=== PATIENT | female | born 1975 | race Caucasian/White ===

== ENCOUNTER 2022-01-10 13:01 | Emergency (ER) | payer BC, SELFPAY ==
--- NOTE | ~2022-01-10 | XR_ITS ---
XR hand RT min 3V 01/10/2022 13:19 INDICATION: Right hand pain. PROCEDURE: 3 views right hand COMPARISON: No prior studies for comparison. FINDINGS: Fracture, dislocation or subluxation is not identified. The soft tissues appear within norm al limits. No foreign bodies are identified. IMPRESSION: 1: NO ACUTE BONE OR JOINT ABNORMALITY IDENTIFIED. Reviewed, dictated and finalized at location A.
--- NOTE | 2022-01-10 13:06 | ED.UPPEXIN ---
HPI - Extremity Injury (Upper) General Chief Complaint: Extremity Injury, Upper Stated Complaint: R HAND PAIN Time Seen by Provider: 01/10/22 13:28 Source: patient and RN notes reviewed Mode of arrival: ambulatory Limitations: no limitations History of Present Illness HPI narrative: 46-year-old female presents concern for right hand pain. She reports pain beneath the fifth digit. She reports swelling. She reports pain started on Thursday, she denies any known injury or trauma. 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 She reports she recently was in physical therapy for pain to digits 1 and 2 of that hand. Reports her physical therapist told her she should get an x-ray. She reports she took ibuprofen this morning. She denies redness, warmth, open skin, rash. MD complaint: injury to: right and hand Related Data Home Medications Medication Instructions Recorded Confirmed No Home Medications 01/10/22 01/10/22 Allergies Allergy/AdvReac Type Severity Reaction Status Date / Time No Known Allergies Allergy Mild Unverified 01/10/22 13:20 Review of Systems Review of Systems: CONSTITUTIONAL: Denies malaise, chills, sweats, or fever. SKIN: Denies rash or itching, open skin, laceration, abrasion, redness, warmth MUSCULOSKELETAL: Reports right hand pain and swelling NEUROLOGIC: Denies numbness, weakness All systems reviewed & are unremarkable except as noted in HPI and below PMFSH Family History Family History (Updated 12/15/13 @ 07:13 by DOCTOR UNKNOWN) Father Hypertension Family history of alcoholism Family history of coronary artery disease Mother Hypertension Social History Social History Smoking status: Never smoker Alcohol intake: current Comments At time of signature, agree with nursing past medical, surgical, social and family history. There is no relevant family history pertinent to the presenting complaint Exam Narrative: GENERAL: Well-appearing, well-nourished, and in no acute distress. HEAD: Normocephalic EYES: PERRLA, conjunctivae clear NECK: Supple. CHEST: Speaks in full sentences. No respiratory distress. HEART: Regular rate and rhythm. Normal and equal peripheral pulses. EXTREMITIES: Right hand and digits of hand have grossly normal strength and sensation. Range of motion grossly normal. No clubbing, cyanosis,. Mild edema and tenderness noted to the lateral hand today digit 5. Skin intact. Normal digital cascade with flexion of fingers, median, ulnar and radial nerve intact. Normal sensation of each side of finger. No scissoring. Normal thumb opposition. Good capillary refill and radial pulse. Distal capillary refill less than 3 seconds. Patient is right/left hand dominant SKIN: Warn, dry, intact, pink. No rash NEURO: Alert and oriented x3. PSYCH: Normal mood and affect Course Course Emergency Course: Patient is aware of diagnosis, understands and agrees to treatment plan. Anticipatory guidance given. Patient agrees to follow-up as directed and is aware of reasons to seek care at the emergency department. Portions of this record may have been created with voice recognition software Level of Care: Express Care Visit Vital Signs Vital signs: Reviewed. MDM - Extremity Injury (Upper) MDM Narrative Medical decision making narrative: Patients pain is consistent with musculoskeletal etiology. No signs of neurological or vascular compromise on exam. Compartments and tissues are soft without signs of compartment syndrome. Pain is felt appropriate for further evaluation on an outpatient basis. Imaging Data My impression: Images reviewed, interpreted by radiologist, agree, see report. Radiologist's impression: XR hand RT min 3V 01/10/2022 13:19 INDICATION: Right hand pain. PROCEDURE: 3 views right hand COMPARISON: No prior studies for comparison. FINDINGS: Fracture, dislocation or subluxation is not identified. The soft tissues appear withi
[2022-01-10 13:07] VITALS: BP 123/66; PULSE 63; RESP 16; TEMP 36.7; O2SAT 100
== END 2022-01-10 13:45 | disposition home or self-care (01) ==
PROVIDERS: Emergency Provider Nurse Practitioner
DX: M79.641 Pain in right hand (principal)
CPT/HCPCS: 73130; 99213; G0463

== ENCOUNTER 2024-12-16 14:30 | Outpatient (RCR) | payer OTHER, SELFPAY ==
--- NOTE | 2024-10-14 11:17 | OTOPEVAL1 ---
Assessment and note entered by Madhu Chin, OTR/Starr, CHT OT Evaluation Information 10/14/24 Diagnosis (R) forearm pain, (R) hand pain ICD-10 Condition Codes (OT) Pain in right hand M79.641,Generalized muscle weakness M62.81 Subjective Information Patient is a dentist, has been practicing for 24 years. She is right handed. Reports experiencing hand fatigue symptoms for 7-8 years. She reports her symptoms have not been constant and she has tried PT over the years. Today she points to the thumb and index finger as well as the 1st web space as the source of her complaints. She holds a pen and demonstrates the type of repetitive movements she does with her dental tools. She reports not necessarily feeling pain, more hand fatigue and weakness. Assessment OT Clinical Summary Patient referred to OT with dx of (R) forearm and (R) hand pain. She has been a practicing dentist for 24 years and demonstrates signs and symptoms of repetitive strain of her right hand intrinsics, lumbricals, and thenar muscles. She demonstrates intact and functional ROM, however she has decreased functional strength and fatigue with strengthening. Educated on use of IASTM tools, self soft tissue mobilization, 1st web space release, and strengthening exercises. At this time the patient is independent with all materials. She is traveling the month of October and we are going to have a follow up in 1 month to reassess and progress her HEP. Interventions Therapeutic Exercise,Manual Therapy,Neuro Re- education,Therapeutic Activities,Hot Pack/Cold Pack,Paraffin OT Services Indicated Yes Treatment Frequency and At this time the patient is independent with all Duration materials. She is traveling the month of October and we are going to have a follow up in 1 month to reassess and progress her HEP. These treatments will address the objective and functional deficits as defined above. The patient will be advanced safely and appropriately in order for the patient to progress towards his/her prior level of function. Additional exercises will be introduced and as well as a comprehensive home exercise program upon discharge, if needed, ?to ensure carryover of functional gains achieved in the clinic. This treatment plan has been reviewed and agreement upon by the patient.
--- NOTE | 2024-10-14 11:17 | OPREHPOC ---
Outpatient Therapy Plan of Care This is a Multidisciplinary Plan of Care that may contain components documented by all disciplines (PT, OT, and ST.) OT Problem 1 OT Problem #1 Knowledge Deficit OT Goal 1 Goal / Goal Update 1. Patient to be independent with instructed materials. Target Visit 2 OT Problem 2 OT Problem #2 Impaired Strength OT Goal 1 Goal / Goal Update 1. Increase (R) head trimmer strength by 5 lbs. 2. Increase (R) lateral pinch strength by 2 lbs. 3. Increase (R) palmar pinch strength by 2 lbs. 4. Increase (R) tip pinch strength by 2 lbs. Target Visit 2 OT Problem 3 OT Problem #3 Impaired Functional ADLs OT Goal 1 Goal / Goal Update 1. Patient to report improved functional hand use and reduced hand fatigue during work tasks. Target Visit 2
--- NOTE | 2024-11-18 09:37 | OTOPPROG ---
Assessment and note entered by Madhu Chin, LYNN/Starr, CHT OT Progress Update 11/18/24 Assessment Status Progress Diagnosis (R) forearm pain, (R) hand pain ICD-10 Condition Codes (OT) Pain in right hand M79.641,Generalized muscle weakness M62.81 Subjective Information Patient reports some progress in her UE symptoms. She reports she has been inconsistent with her HEP due to traveling, but she does note that the nerve glides and soft tissue release have been helpful. She reports that the self trigger point release to the 1st web space has been the most helpful. Assessment OT Clinical Summary Patient referred to OT with dx of (R) forearm and (R) hand pain. 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 She demonstrates progress with utilizing improved hand mechanics vs overusing the lumbricals and intrinsic muscles. She continues to demonstrate weakness with paper cutter and pinch assessments. Continued skilled OT indicated for use of modalities, manual therapy, therapeutic exercise, and HEP progression to increase functional (R) hand use for ADLs and work tasks. Plan of Care Interventions Therapeutic Exercise,Manual Therapy,Neuro Re- education,Therapeutic Activities,Hot Pack/Cold Pack,Paraffin OT Services Indicated Yes Treatment Frequency and Recommending 1x/week every other week. At this Duration time patient's schedule and therapist's schedule only allows for a follow up in 1 month. These treatments will address the objective and functional deficits as defined above. The patient will be advanced safely and appropriately in order for the patient to progress towards his/her prior level of function. Additional exercises will be introduced and as well as a comprehensive home exercise program upon discharge, if needed, ?to ensure carryover of functional gains achieved in the clinic. This treatment plan has been reviewed and agreement upon by the patient.
--- NOTE | 2024-11-18 09:37 | OPREHPOC ---
Outpatient Therapy Plan of Care This is a Multidisciplinary Plan of Care that may contain components documented by all disciplines (PT, OT, and ST.) OT Problem 1 OT Problem #1 Knowledge Deficit OT Goal 1 Goal / Goal Update 1. Patient to be independent with instructed materials. ---OT POC UPDATE 11/18/24--- 1. Met, continue as HEP is progressed Target Visit 6 OT Problem 2 OT Problem #2 Impaired Strength OT Goal 1 Goal / Goal Update 1. Increase (R) hplc chemist strength by 5 lbs. 2. Increase (R) lateral pinch strength by 2 lbs. 3. Increase (R) palmar pinch strength by 2 lbs. 4. Increase (R) tip pinch strength by 2 lbs. ---OT POC UPDATE 11/18/24--- 1. Not met, continue 2. Not met, continue 3. Not met, continue 3. Not met, continue Target Visit 5 OT Problem 3 OT Problem #3 Impaired Functional ADLs OT Goal 1 Goal / Goal Update 1. Patient to report improved functional hand use and reduced hand fatigue during work tasks. ---OT POC UPDATE 11/18/24--- 1. Patient reports this is progressing, but she continues to experience fatigue. Continue to check in on this. Target Visit 5
--- NOTE | 2024-12-16 15:53 | OTOPDC ---
Assessment and note entered by Madhu Chin, OTR/Starr, MARLOT OT D/C 12/16/24 Assessment Status Discharge Diagnosis (R) forearm pain, (R) hand pain ICD-10 Condition Codes (OT) Pain in right hand M79.641,Generalized muscle weakness M62.81 Subjective Information Patient reports some progress in her UE symptoms. She reports better compliance with the HEP. She notes that her hand fatigue is not as bad after a days work and this has carried over into being able to do housework with less fatigue also. OT Clinical Summary Patient referred to OT with dx of (R) forearm and (R) hand pain. 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 She is making progress with therapy, noted by reports of reduced hand/arm fatigue with work and household tasks. She is also improving with functional chief librarian music department and pinch strength. She demonstrates improved functional mechanics of the hand during fine motor tasks. Reviewed all materials today. Patient is independent with HEP and is in agreement with D/C. OT Services Indicated No
== END 2024-12-20 09:22 | disposition home or self-care (01) ==
LOC: ANHOT 14:30
PROVIDERS: PCP Nurse Practitioner Family; Visit Provider Nurse Practitioner Family
DX: M79.631 Pain in right forearm (principal); M79.641 Pain in right hand
CPT/HCPCS: 97018; 97110; 97166